=== PATIENT | female | born 1980 | race Caucasian/White ===

== ENCOUNTER → 2021-06-21 07:37 | Outpatient (CLI) | payer SELFPAY ==
--- NOTE | ~2021-06-21 | US_ITS ---
US abdomen complete DATE: 06/21/2021 08:16 INDICATION: Right upper quadrant abdominal pain. Diarrhea. TECHNIQUE: Real-time imaging of the abdomen, Doppler analysis COMPARISON: None FINDINGS: The abdominal aorta is of normal caliber. The inferior vena cava is unremarkable. The pancreatic tail is obscured by bowel gas. The pancreas otherwise appears unremarkable. No hepatic space-occupying mass lesion is evident. Normal hepatopedal portal venous flow direction. There is a filling defect with shadowing fixed in position at the neck of the gallbladder. Mobile michael ling defects are noted in the gallbladder fundus consistent with additional gallstones. No gallbladde r wall thickening or abnormal pericholecystic fluid collection. Negative sonographic Hairston's sign. The common bile duct measures 3 mm, normal. Normal splenic size. Right kidney 9.3 cm length, left kidney 10.2 cm. No renal space occupying mass lesion or hydronephros is is detected. IMPRESSION: Multiple gallstones, including 1.5 cm stone fixed in position at gallbladder neck. No gal lbladder wall thickening or abnormal pericholecystic fluid collection. Negative sonographic Hairston's sign Reviewed, dictated and finalized at [facility]. Reviewed, dictated and finalized at [facility]. IMPRESSION: Multiple gallstones, including 1.5 cm stone fixed in position at ga llbladder neck. No gallbladder wall thickening or abnormal pericholecystic flui d collection. Negative sonographic Hairston's sign
== END ==
PROVIDERS: PCP Family Medicine Sports Medicine; Visit Provider Family Medicine Sports Medicine
DX: R10.11 Right upper quadrant pain (principal); K80.20 Calculus of gallbladder without cholecystitis without obstruction
CPT/HCPCS: 76700